=== PATIENT | male | born 1965 | race Two or more races ===

== ENCOUNTER 2020-04-05 08:52 | Outpatient (REF) | payer OTHER, SELFPAY | END 2020-04-05 08:53 | disposition home or self-care (01) | LOC: HO.LAB 08:52 | PROVIDERS: Visit Provider Internal Medicine | DX: Z20.828 Contact with and (suspected) exposure to other viral communicable diseases (principal) | CPT/HCPCS: C9803; U0003 ==

== ENCOUNTER 2020-10-29 10:38 | Outpatient (REF) | payer OTHER, SELFPAY ==
[2020-10-29 11:46] LABS: MANUAL DIFF FLAG NO
[2020-10-29 11:54] LABS: Basophils Percent Auto 0.6 % (0-2); Eosinophils Percent Auto 0.7 % (0-4); Hemoglobin 13.9 g/dl (14.0-18.0); Imm Gran Abs Auto 0.03 X10*3/uL (0.00-0.03); Imm Gran Pct Auto 0.6 % (0.0-0.4); Lymphocytes Absolute Auto 1.3 X10*3/uL (1.2-4.9); Lymphocytes Percent Auto 23.2 % (20-40); Mean Corpuscular HGB Conc 32.3 g/dl (31.0-36.0); Mean Corpuscular Hemoglobin 29.8 pg (27.0-33.0); Mean Corpuscular Volume 92.1 fL (80-98); Mean Platelet Volume 11.1 fL (9.4-12.4); Monocytes Absolute Auto 0.5 X10*3/uL (0.1-1.2); Monocytes Percent Auto 9.8 % (2-11); Neutrophils Absolute Auto 3.5 X10*3/uL (2.0-8.3); Neutrophils Percent Auto 65.1 % (45-73); Platelet Count 198 X10*3/uL (160-400); Red Blood Count 4.67 X10*6/uL (4.60-5.80); Red Cell Distribution Width 12.9 % (11.0-16.0); White Blood Count 5.4 X10*3/uL (4.8-10.8)
[2020-10-29 12:22] LABS: Glucose Urine UA NEG (NEG); Leukocyte Esterase Urine NEG (NEG); Nitrite Urine NEG (NEG); PH 6.5 (5.0-8.0); Urine Blood NEG (NEG); Urine Ketones NEG (NEG); Urine Protein NEG (NEG-TRACE)
[2020-10-29 12:24] LABS: Appearance Urine CLEAR; Color Urine YELLOW
[2020-10-29 12:28] LABS: Alanine Aminotransferase 28 U/L (0-40); Albumin Level 4.3 g/dL (3.5-5.0); Alkaline Phosphatase 52 U/L (39-117); Anion Gap 11 (12-20); Aspartate Amino Transferase 21 U/L (5-37); Bilirubin Total 0.3 mg/dL (0.0-1.0); Blood Urea Nitrogen 19 mg/dL (9-16); Calcium 10.1 mg/dL (8.4-10.2); Carbon Dioxide 28 mmol/L (22-29); Chloride 106 mmol/L (96-108); Cholesterol 147 mg/dL; Estimated Glomerular Filt Rate > 60; Glucose Random 112 mg/dL (60-115); HDL Cholesterol 46 mg/dL; LDL Cholesterol Calculated 91 mg/dl; Sodium 140 mmol/L (135-145); Total Protein 7.3 g/dL (6.5-8.0); Triglycerides 50 mg/dL
== END 2020-10-29 10:39 | disposition home or self-care (01) ==
LOC: HO.LAB 10:38
PROVIDERS: PCP Internal Medicine; Visit Provider Internal Medicine
DX: Z00.00 Encounter for general adult medical examination without abnormal findings (principal)
CPT/HCPCS: 36415; 80053; 80061; 81003; 85025

== ENCOUNTER 2021-04-08 15:11 | Emergency (ER) | payer OTHER, SELFPAY ==
--- NOTE | ~2021-04-08 | XR_ITS ---
EXAMINATION: XR CHEST CLINICAL INFORMATION: Chest pain. COMPARISON: None TECHNIQUE: Frontal view of the chest was obtained. FINDINGS: The trachea is in normal anatomic position. The cardiac silhouette is normal in size. The lungs are clear. No pleural effusion or pneumothorax. No acute osseous abnormality. XR/XR chest 1V IMPRESSION: No acute cardiopulmonary disease.
--- NOTE | 2021-04-08 17:01 | ECG_ITS ---
Test Reason : chest pain Blood Pressure : / mmHG Vent. Rate : 065 BPM Atrial Rate : 065 BPM P-R Int : 184 ms QRS Dur : 094 ms QT Int : 396 ms P-R-T Axes : 059 -28 -06 degrees QTc Int : 411 ms Normal sinus rhythm Normal ECG No previous ECGs available Referred By: Generic ED Physician Electronically Signed By:Nico Hernandez
[2021-04-08 18:07] VITALS: BP 130/90; PULSE 67; RESP 18; TEMP 36.7; O2SAT 99; BMI 22.4
[2021-04-08 19:33] LABS: MANUAL DIFF FLAG NO
[2021-04-08 19:35] LABS: Basophils Percent Auto 0.5 % (0-2); Eosinophils Absolute Auto 0.2 X10*3/uL (0.0-0.4); Eosinophils Percent Auto 2.4 % (0-4); Hemoglobin 13.8 g/dl (14.0-18.0); Lymphocytes Absolute Auto 2.2 X10*3/uL (1.2-4.9); Lymphocytes Percent Auto 35.7 % (20-40); Mean Corpuscular HGB Conc 33.7 g/dl (31.0-36.0); Mean Corpuscular Hemoglobin 30.6 pg (27.0-33.0); Mean Corpuscular Volume 90.9 fL (80.0-98.0); Mean Platelet Volume 10.1 fL (9.4-12.4); Monocytes Absolute Auto 0.7 X10*3/uL (0.1-1.2); Monocytes Percent Auto 11.6 % (2-11); Neutrophils Absolute Auto 3.1 x10*3/uL (2.0-8.3); Neutrophils Percent Auto 49.8 % (45-73); Platelet Count 210 X10*3/uL (160-400); Red Blood Count 4.51 X10*6/uL (4.60-5.80); Red Cell Distribution Width 12.9 % (11.0-16.0); White Blood Count 6.1 X10*3/uL (4.8-10.8)
[2021-04-08 19:47] LABS: Anion Gap 11 (12-20); Blood Urea Nitrogen 20 mg/dL (9-16); Carbon Dioxide 32 mmol/L (22-29); Chloride 103 mmol/L (96-108); Creatinine Clr Calc Pharmacy 94.6; Estimated Glomerular Filt Rate > 60; Glucose Random 99 mg/dL (60-115); Potassium 4.3 mmol/L (3.3-5.1); Sodium 142 mmol/L (135-145)
[2021-04-08 19:50] LABS: COVID-19 Test Negative (Negative)
[2021-04-08 19:54] LABS: Troponin-I High Sensitivity < 3.5 ng/L (<3.5-35.0)
== END 2021-04-08 21:04 | disposition left against medical advice (07) ==
PROVIDERS: Emergency Provider Emergency Medicine; PCP Internal Medicine
DX: R07.9 Chest pain, unspecified (principal); R51.9 Headache, unspecified; Z20.822 Contact with and (suspected) exposure to COVID-19
CPT/HCPCS: 36415; 71045; 80048; 84484; 85025; 87635; 93005; 99283; 99284

== ENCOUNTER 2022-01-04 09:05 | Outpatient (REF) | payer OTHER, SELFPAY ==
[2022-01-04 09:25] LABS: MANUAL DIFF FLAG NO
[2022-01-04 09:53] LABS: Basophils Percent Auto 0.8 % (0-2); Eosinophils Absolute Auto 0.2 X10*3/uL (0.0-0.4); Eosinophils Percent Auto 3.2 % (0-4); Hematocrit 44.6 % (42.0-52.0); Hemoglobin 14.9 g/dl (14.0-18.0); Imm Gran Abs Auto 0.01 X10*3/uL (0.00-0.03); Imm Gran Pct Auto 0.2 % (0.0-0.4); Lymphocytes Absolute Auto 1.5 X10*3/uL (1.2-4.9); Lymphocytes Percent Auto 30.9 % (20-40); Mean Corpuscular HGB Conc 33.4 g/dl (31.0-36.0); Mean Corpuscular Hemoglobin 30.3 pg (27.0-33.0); Mean Corpuscular Volume 90.7 fL (80.0-98.0); Mean Platelet Volume 10.6 fL (9.4-12.4); Monocytes Absolute Auto 0.6 X10*3/uL (0.1-1.2); Monocytes Percent Auto 11.8 % (2-11); Neutrophils Absolute Auto 2.7 x10*3/uL (2.0-8.3); Neutrophils Percent Auto 53.1 % (45-73); Platelet Count 195 X10*3/uL (160-400); Red Blood Count 4.92 X10*6/uL (4.60-5.80); Red Cell Distribution Width 12.8 % (11.0-16.0)
[2022-01-04 09:54] LABS: Appearance Urine Clear; Color Urine Yellow; Glucose Urine UA Negative (Negative); Leukocyte Esterase Urine Negative (Negative); Nitrite Urine Negative (Negative); Specific Gravity - Urine 1.025 (1.005-1.025); Urine Blood Negative (Negative); Urine Ketones Negative (Negative); Urine Protein Negative (Neg-Trace)
[2022-01-04 09:59] LABS: Bacteria Urine None Seen (None Seen); Hyaline Casts Urine 0-2 /LPF (0-2); RBC Urine 0-2 /HPF (0-2); Squamous Epithelial Cell Urine 0-2 /HPF (0-2); WBC Urine 0-5 /HPF (0-5)
[2022-01-04 10:34] LABS: Prostate Specific Antigen 0.66 ng/mL (<0.05-4.0)
[2022-01-04 10:46] LABS: Alanine Aminotransferase 16 U/L (0-40); Albumin Level 4.3 g/dL (3.5-5.0); Alkaline Phosphatase 54 U/L (39-117); Anion Gap 14 (12-20); Aspartate Amino Transferase 17 U/L (5-37); Blood Urea Nitrogen 25 mg/dL (9-16); Carbon Dioxide 29 mmol/L (22-29); Chloride 106 mmol/L (96-108); Cholesterol 163 mg/dL; Estimated Glomerular Filt Rate > 60; Glucose Random 112 mg/dL (60-115); HDL Cholesterol 45 mg/dL; LDL Cholesterol Calculated 104 mg/dl; Sodium 144 mmol/L (135-145); Total Protein 7.1 g/dL (6.5-8.0); Triglycerides 73 mg/dL
[2022-01-04 10:50] LABS: Bilirubin Total 0.7 mg/dL (0.0-1.0)
== END 2022-01-04 09:06 | disposition home or self-care (01) ==
LOC: HO.LAB 09:05
PROVIDERS: PCP Internal Medicine Nephrology; Visit Provider Internal Medicine Nephrology
DX: Z00.00 Encounter for general adult medical examination without abnormal findings (principal); Z13.220 Encounter for screening for lipoid disorders; Z13.29 Encounter for screening for other suspected endocrine disorder; Z12.5 Encounter for screening for malignant neoplasm of prostate
CPT/HCPCS: 36415; 80053; 80061; 81001; 84153; 85025

== ENCOUNTER 2022-12-02 10:20 | Emergency (ER) | payer OTHER, SELFPAY ==
[2022-12-02 10:22] VITALS: BP 130/81; PULSE 79; RESP 19; TEMP 36.6; O2SAT 99; BMI 23.1
--- OUTSIDE RECORDS SUMMARY | 2022-12-02 10:37 | XMS_ITS | Continuity of Care Document ---
Author Name Unknown Organization [facility] Address [address] [place] [id number]- Care Team Providers Care Rigging Helper Name Role Phone Kacy BARROW, Grayson Jacobsen Primary Care Physician [phone] Encounter [facility] [place] Date(s): 04/12/20 - 07/07/20 [facility] [address] [address] Attending Physician: Viola Finch MD Admitting Physician: Viola Finch MD Referring Physician: Grayson Woodruff MD Allergies, Adverse Reactions, Alerts Substance Reaction Severity Status penicillin RASH Active aspirin Active Medications AutoCPAP 5-15 AutoCPAP 5-15, See Instructions, # 1 each, Refills 0, Tot. Refills 0, Maintenance, with heated humidification, use overnight and naps, from [facility]. G47.33, 04/03/20 14:05:00 EST, Compound Start Date: 04/03/20 Status: Ordered Suboxone 2 mg-0.5 mg sublingual tablet, disintegrating 2 tablet, Sublingual, Daily, 0 Refills, Maintenance Start Date: 05/11/12 Status: Ordered
--- OUTSIDE RECORDS SUMMARY | 2022-12-02 10:37 | XMS_ITS | Continuity of Care Document ---
Author Name Unknown Organization [facility] Address [address] [place] [id number]- Care Team Providers Care Licensed Social Worker Name Role Phone Kacy BARROW, Grayson Jacobsen Primary Care Physician Encounter [facility] [place] Date(s): 09/12/20 - 10/12/20 [facility] [address] [id number] Attending Physician: Admtr, [id number] Admitting Physician: Admtr, Ar8 Referring Physician: Admtr, Ar8 Allergies, Adverse Reactions, Alerts Substance Reaction Severity Status penicillin RASH Active aspirin Active Medications AutoCPAP 5-15 AutoCPAP 5-15, See Instructions, # 1 each, Refills 0, Tot. Refills 0, Maintenance, with heated humidification, use overnight and naps, from [facility]. G47.33, 04/03/20 14:05:00 EST, Compound Start Date: 04/03/20 Status: Ordered Suboxone 2 mg-0.5 mg sublingual tablet, disintegrating 2 tablet, Sublingual, Daily, 0 Refills, Maintenance Start Date: 05/11/12 Status: Ordered
--- OUTSIDE RECORDS SUMMARY | 2022-12-02 10:37 | XMS_ITS | Continuity of Care Document ---
Author Name Unknown Organization [facility] Address [address] [place] [id number]- Care Team Providers Care Junior Network Engineer Name Role Phone Grayson Woodruff MD Primary Care Physician Encounter [facility] [place] Date(s): 02/10/20 - 04/29/20 [facility] [address] [id number] Attending Physician: Salvador IBANEZ, Alexus Ferguson Admitting Physician: Salvador IBANEZ, Alexus Ferguson Referring Physician: Grayson Woodruff MD Allergies, Adverse Reactions, Alerts Substance Reaction Severity Status penicillin RASH Active aspirin Active Medications AutoCPAP 5-15 AutoCPAP 5-15, See Instructions, # 1 each, Refills 0, Tot. Refills 0, Maintenance, with heated humidification, use overnight and naps, from [facility]. G47.33, 04/03/20 14:05:00 EST, Compound Start Date: 04/03/20 Status: Ordered Suboxone 2 mg-0.5 mg sublingual tablet, disintegrating 2 tablet, Sublingual, Daily, 0 Refills, Maintenance Start Date: 05/11/12 Status: Ordered
--- OUTSIDE RECORDS SUMMARY | 2022-12-02 10:37 | XMS_ITS | Continuity of Care Document ---
Author Name Unknown Organization [facility] Address [address] [place] [id number]- Care Team Providers Care System Administrator Name Role Phone Kacy BARROW, Grayson Jacobsen Primary Care Physician [phone] Encounter [facility] [place] Date(s): 06/07/20 - 07/07/20 [facility] [address] [id number] Attending Physician: Admtr, [id number] Admitting Physician: Admtr, Ar8 Referring Physician: Admtr, Ar8 Allergies, Adverse Reactions, Alerts Substance Reaction Severity Status penicillin RASH Active aspirin Active Medications AutoCPAP 5-15 AutoCPAP 5-15, See Instructions, # 1 each, Refills 0, Tot. Refills 0, Maintenance, with heated humidification, use overnight and naps, from [facility]. G47.33, 04/03/20 14:05:00 EST, Compound Start Date: 04/03/20 Status: Ordered Suboxone 2 mg-0.5 mg sublingual tablet, disintegrating 2 tablet, Sublingual, Daily, 0 Refills, Maintenance Start Date: 05/11/12 Status: Ordered
--- NOTE | 2022-12-02 11:00 | ED_ITS ---
HPI - General Adult General Chief complaint: Upper Respiratory Symptoms Stated complaint: Headache Bodyache Time Seen by Provider: 12/02/22 10:37 Source: patient Mode of arrival: ambulatory Limitations: no limitations History of Present Illness HPI narrative: Patient is a 57-year-old male presenting emergency department with complaint of generalized body aches, nonproductive cough and fever/chills/sweats since ye . States had fever of 102 yesterday. Has used NyQuil and naproxen for his symptoms. Denies any chest pain or shortness of breath. Denies any known sick contacts. States he has received 3 COVID vaccines. MD complaint: Fever, cough, body aches Onset (ago): day(s) Relieving factors: rest Exacerbating factors: movement Associated symptoms: cough, fever/chills and other (generalized body aches) Treatments prior to arrival: NSAID Related Data Allergies Allergy/AdvReac Type Severity Reaction Status Date / Time Penicillins [PENICILLINS] Allergy Unknown HIVES Verified 12/02/22 10:22 Review of Systems Review of Systems: As per HPI Yes all other systems are reviewed and are negative Constitutional: Constitutional: Reports as per HPI [facility] Past Medical History Medical History (Updated 12/02/22 @ 11:43 by Cesilia Aldana NP) Anxiety Depression High cholesterol Hypertension Social History Social History Advance Directives: No Physical Exam ED Vital Signs: Vital Signs - 24 hr 12/02/22 10:22 Temperature 98 F Pulse Rate 79 Respiratory Rate 19 Blood Pressure 130/81 Pulse Oximetry 99 Oxygen Delivery Method Room Air BMI result Body Mass Index 23.1 Vital signs have been reviewed and appear to be correct. Blood pressure normal. Heart rate normal. Respiratory rate normal. Temperature normal. Oxygen saturation normal. Const General: cooperative, healthy appearing and no acute distress Orientation/consciousness: oriented to person, oriented to place, oriented to ti me and patient oriented x3 Limitations: no limitations HENMT Head: Yes normocephalic and Yes atraumatic Ears: external ears normal General nose exam: Normal external nose present Face and sinus: Yes face symmetric Mouth: oropharynx normal and moist mucous membranes Throat: Yes uvula midline Eyes Pupils: Equal, round and reactive pupils present Neck Neck: Yes normal visual inspection and Yes supple Resp Effort & Inspection: normal respiratory effort and able to speak in complete sentences Auscultation: clear to auscultation bilaterally Cardio Rate: regular rate Rhythm: regular rhythm Heart sounds: S1 normal heart sound present and S2 normal heart sound present GI Palpation (GI): Soft to palpation and nontender Auscultation: normoactive bowel sounds General: Yes no CVA tenderness Back/Spine/Pelvis Back: no CVA tenderness Skin General skin exam: elasticity normal and turgor normal Neuro General: oriented to person, oriented to place, oriented to time, patient oriented x3, moves all extremities, no focal motor deficits and CN's II-XI intact bilaterally Cranial nerves: Yes Equal, round and reactive pupils present Cognition (Neuro): normal cognition Extrem General: Yes full ROM, Yes no pedal edema and Yes no calf tenderness Psych Mental Status: mental status grossly normal Affect: normal affect Thought process: Normal thought process present Medical Decision Making Medical Decision Making [facility] Narrative: Patient is a 57-year-old male presenting emergency department with complaint of generalized body aches, nonproductive cough and fever/chills/sweats since yesterday. On exam patient is awake, A+Ox3, VS WNL, afebrile, nontoxic appearing, normal neurological exam without focal deficits, LS CTA throughout. Given reported symptoms and physical exam findings, initial differential includes Covid, influenza, other viral illness. Do not suspect bronchitis, pneumonia. COVID swab positive, patient updated on results. Discussed treatment with Paxlovid with patient which he declined. Advised patient to continue utilizing [id number] medications as needed for symptomatic relief, encourage rest and adequate fluid intake. Discussed with patient that he should isolate through Thursday and continue to wear mask for 5 days following that. Work note provided. Instructed patient to follow-up with primary care provider. Return precautions discussed at bedside. Patient verbalized understanding of and agreement with plan. Differential Diagnosis Differential Diagnoses: The differential diagnosis associated with the presentation includes As per MDM. Lab Data [facility] Lab Attestation statement: I reviewed the patient's lab results. As per [facility]. Labs: Lab Results 12/02/22 12/02/22 Range/Units 10:27 10:27 COVID-19 ([facility]) Positive A (Negative) COVID-19 Clin Com See Note Influenza Type A (ENOC) Negative (Negative) Influenza Type B (ENOC) Negative (Negative) Influenza A & B Note See Note External Record Review External record reviewed: Inpatient record, Office record and Outpatient record Prescription Management I considered prescription management with: Antiviral Discharge Plan Discharge Clinical Impression: COVID-19 Patient Disposition: Home, Self-Care Instructions: COVID-19 (Coronavirus Disease 2019) (ED) Additional Instructions: You tested positive for COVID-19 in the emergency department today. He should continue to isolate at home through Thursday and continue to wear a mask for 5 days following that. Please schedule follow-up appointment with her primary care provider. Return to the emergency department with worsening shortness of breath, chest pain, fever not controlled with Tylenol/ibuprofen, or any other concerning symptoms.
[2022-12-02 11:07] LABS: COVID-19 Test Positive (Negative); IDNOW Serial# 08D9AD1C
[2022-12-02 11:08] LABS: IDNOW Serial# 6674DD1D; Influenza A Negative (Negative); Influenza B2 Negative (Negative)
== END 2022-12-02 11:53 | disposition home or self-care (01) ==
PROVIDERS: Emergency Provider Emergency Medicine; PCP Internal Medicine
DX: U07.1 COVID-19 (principal)
CPT/HCPCS: 87502; 87635; 99282; 99283